=== PATIENT | female | born 1980 ===

== ENCOUNTER → 2020-06-12 11:59 | Outpatient (CLI) | payer BC, SELFPAY ==
[2020-06-16 07:39] LABS: HSV 1 DNA Negative (Negative); HSV 2 DNA Negative (Negative)
== END ==
PROVIDERS: PCP Family Medicine; Visit Provider Family Medicine
DX: B00.9 Herpesviral infection, unspecified (principal)
CPT/HCPCS: 87529

== ENCOUNTER 2020-07-26 19:45 | Emergency (ER) | payer BC, SELFPAY ==
[2020-07-26 19:53] VITALS: BP 130/81; PULSE 68; RESP 18; TEMP 36.4; O2SAT 96; BMI 25.0
[2020-07-26] MEDS: TET,DIPH,PERTUSS(ACELL),VAC/PF 0.5 ML SYRINGE IM (21:09)
--- NOTE | 2020-07-26 21:14 | ED_ITS ---
HPI - Wound/Laceration General Chief Complaint: Wound/Laceration Stated Complaint: cut middle finger right hand Time Seen by Provider: 07/26/20 20:47 Source: patient Mode of arrival: Family Vehicle Limitations: no limitations History of Present Illness HPI narrative: Patient complains of laceration to the right middle finger. There is an open area on her bathroom sink that her finger brushed against. Causing injury. Tetanus not up-to-date. Denies any numbness tingling weakness. Has small laceration 5 mm on the right middle finger at the medial/thumb side of the fingernail. Does not involve the fingernail. Related Data Home Medications Medication Instructions Recorded Confirmed ashwaganda PO 06/12/20 Previous Rx's Medication Instructions Recorded cephalexin 500 mg PO QID #16 cap 07/26/20 Allergies Allergy/AdvReac Type Severity Reaction Status Date / Time meperidine [From Demerol] Allergy Severe family Verified 07/26/20 19:58 allergy Review of Systems Review of Systems Narrative: GENERAL: Denies chills, fatigue, malaise, fever, sweats. HEENT: Denies sinus pain, ear pain, sore throat, difficulty swallowing RESPIRATORY: Denies dyspnea, cough CARDIOVASCULAR: Denies chest pain, palpitations, edema, GASTROINTESTINAL: Denies nausea, vomiting, abdominal pain, diarrhea, constipation, melena. : Denies dysuria, frequency, hematuria MUSCULOSKELETAL: denies muscle or bony pain SKIN: Denies rash, skin lesions NEUROLOGIC: Denies weakness, headache, numbness, change in speech, confusion PSYCHIATRIC: No SI or HI or hallucinations ROS Unobtainable: All systems reviewed & are unremarkable except as noted in HPI and below Patient History Medical History Goiter (Acute) Surgical History History of endometrial ablation (Acute) Family History Father Cancer Mother Hypertension Social History Smoking Status: Never smoker Smoking Status: Never smoker alcohol intake frequency: 0-2 drinks per day Substance Use Type: does not use Exam Narrative Exam Narrative: GENERAL: patient appears stated age. Well-nourished, well- developed patient, in no distress, not toxic not dyspneic HEAD: Normocephalic. EYES: Pupils equal round and reactive. No scleral icterus. No injection no discharge EXTREMITIES: No gross deformities. Examination right hand. There is a 5 mm linear superficial laceration at the medial/thumb side of the fingernail. Extends slightly towards the pad of the finger. No foreign body seen. No active bleeding bloodless field. Light touch intact to finger tip. Fingers warm soft and pink. Able to flex extend at the MCP PIP and the IP joints actively. NEURO: AOx4. SKIN: Warm and dry PSYCH: Not anxious, is cooperative Initial Vital Signs Initial Vital Signs: Vital Signs Temperature 97.5 F L 07/26/20 19:53 Pulse Rate 68 07/26/20 19:53 Respiratory Rate 18 07/26/20 19:53 Blood Pressure 130/81 07/26/20 19:53 Pulse Oximetry 96 07/26/20 19:53 Procedures Laceration Repair Laceration 1: Site: other (Right middle finger) Side (If applicable): right Description: linear Depth: simple, single layer Local Anesthetic: other anesthetic (No anesthetic required) Pre-repair: wound explored (Hibiclens for cleaning/normal saline for irrigation) and irrigated extensively Skin layer closed with: dermabond (Also applied Steri-Strips) Course Course Course Narrative: No issues or new complaints while here. No bleeding of the finger after Dermabond and Steri-Strips. Bulky dressing applied to finger Orders Ordered: Discontinued Medications Cephalexin HCl (Keflex) 500 mg PO NOW ONE Stop: 07/26/20 21:15 Last Admin: 07/26/20 21:20 Dose: 500 mg Documented by: RMARTIN Diphtheria/Tetanus/Acell Pertussis (Adacel) 0.5 ml IM .ONCE ONE Stop: 07/26/20 20:58 Last Admin: 07/26/20 21:09 Dose: 0.5 ml Documented by: WOODY Reevaluation(s) Reevaluation #1: Patient agrees no x-ray at this time. Low suspicion for foreign body. Time: 21:20 Vital Signs Vital signs: Vital Signs - 8 hr 07/26/20 19:53 07/26/20 21:25 Temperature 97.5 F L Pulse Rate 68 56 L Respiratory Rate 18 16 Blood Pressure 130/81 120/68 Pulse Oximetry 96 96 MDM - Wound/Laceration MDM Narrative Medical decision making narrative: Appropriate for discharge home. No imaging indicated. No laboratory studies. Patient has been updated with the tetanus shot. Keflex for prophylaxis for infection. Discharge Plan Departure Patient Disposition: Home Clinical Impression: Finger laceration Qualifiers: Encounter type: initial encounter Finger: middle finger Damage to nail status: without damage Foreign body presence: without foreign body Laterality: right Qualified Code(s): S61.212A - Laceration without foreign body of right middle finger without damage to nail, initial encounter Discharge Date/Time: 07/26/20 21:26 Instructions: DI for Laceration Repair Activity Restrictions/Additional Instructions: Keeping or drive for the next 24 hours. May shower but no submersion of finger under water. Change dressing daily. Return if any fever chills or discharge from the finger wound or any redness of the finger. See family doctor this week for recheck. Continue antibiotic tomorrow Prescriptions: New cephalexin 500 mg capsule 500 mg PO QID Qty: 16 RF: 0 No Action ashwaganda PO RF: 0 Referrals: Pritesh Price MD [Primary Care Provider] -
[2020-07-26] MEDS: cephALEXin 250 MG CAPSULE 500 MG PO (21:20)
[2020-07-26 21:25] VITALS: BP 120/68; PULSE 56; RESP 16; O2SAT 96
== END 2020-07-26 21:26 | disposition home or self-care (01) ==
PROVIDERS: Emergency Provider Emergency Medicine; PCP Family Medicine
DX: S61.212A Laceration without foreign body of right middle finger without damage to nail, initial encounter (principal); W26.8XXA Contact with other sharp object(s), not elsewhere classified, initial encounter; Z23 Encounter for immunization
CPT/HCPCS: 90471; 99283; 99284; 90715